=== PATIENT | female | born 1955 | race Caucasian/White ===

== ENCOUNTER → 2025-05-02 | Outpatient (CLI) | payer OTHER, SELFPAY ==
--- NOTE | 2025-05-02 | CYSPIN_PTH ---
PATIENT: DIGNA ACOSTA LOC: [facility] U#:[id number] AGE/SX: 69/F ROOM: RE05/02/[address]: Dr. Jesi Olvera MD : 1955 BED: DIS: 05/02/2025 SPEC #: [id number] RECD: 05/02/25 15:39 STATUS: JESSICA RETrey #: [id number] EUFEMIA: 05/02/25 00:[address]: Jesi Olvera DEPT: CYTOLOGY RECD BY: Charlie Vasquez ENTERED: 05/05/25 12:02 SP TYPE: CYSPIN FL OTHR DR: Dr. Nory Yarbrough MD Tissues: A - Urine Procedures: Pap Stain (control) Special Stain Group II Cytospin Fluid HEADER OPERATION: Not noted PRE-OP DIAGNOSIS: Gross hematuria TISSUE SUBMITTED: A- Urine for cytology - voided DIAGNOSIS CYTOLOGY A. Urine, voided (cytospin): - No malignant cells identified. CYTOLOGY STUDY Slides are reviewed. CYTOLOGY GROSS A. Received is 25 ml of gold-cloudy fluid labeled with the patient's name and and designated per the requisition as urine. Submitted for cytology preparation. Mr 05/05/2025 CPT: 69998
== END | disposition home or self-care (01) ==
LOC: LABSPEC 17:31
PROVIDERS: PCP General Practice; Visit Provider Urology
DX: R31.0 Gross hematuria (principal)
CPT/HCPCS: 88108; 88313

== ENCOUNTER → 2025-05-02 | Outpatient (CLI) | payer OTHER, SELFPAY ==
[2025-05-02 17:33] LABS: Cytology, Body Fluid / CSF SEE PATHOLOGY REPORT
[2025-05-02 18:04] LABS: Anion Gap 10 (5-15); BUN 18 mg/dL (4-19); BUN/Creat Ratio 19.2 RATIO (10-20); Calcium,Total 9.8 mg/dL (7.6-11.0); Carbon Dioxide 27.2 mmol/L (21.0-32.0); Chloride 104 mmol/L (98-108); Glucose 120 mg/dL (70-99); Potassium 4.1 mmol/L (3.3-5.1)
== END | disposition home or self-care (01) ==
PROVIDERS: PCP General Practice; Referring Provider Urology; Visit Provider Urology
DX: R31.0 Gross hematuria (principal)
CPT/HCPCS: 36415; 80048

== ENCOUNTER → 2025-05-26 | Outpatient (CLI) | payer MEDICARE, SELFPAY ==
--- NOTE | 2025-05-26 12:55 | CT_ITS ---
PROCEDURE: CT ABD/PELVIS W/WO CONTRAST 05/26/2025 REASON FOR EXAM: GROSS HEMATURIA TECHNIQUE: Procedure Code: [id number] Modality: CT Procedure: CT ABD/PELVIS W/WO CONTRAST Coronal and Sagittal reconstruction series were provided. CONTRAST: Isovue-300 VOLUME: 100 mL One or more dose reduction techniques were used (e.g., Automated exposure control, adjustment of the mA and/or kV according to patient size, use of iterative reconstruction technique. RADIATION DOSE SUMMARY: CTDlvol: 16.3 mGy DLP: 2821.00 mGycm COMPARISON: None FINDINGS: Lung bases: The lung bases are clear. Liver: Diffuse fatty infiltration. Gallbladder: The gallbladder is partially contracted. Spleen: Normal size. Pancreas: Normal size without evidence of mass surrounding inflammation or ductal dilation. Adrenals: Unremarkable Kidneys: There is evidence of a 4.9 cm by 5.8 cm by 5.5 cm heterogeneous mass arising from the upper midportion of the right kidney extending along its inferior aspect. There is evidence of thrombus within the right renal pelvis. There is thrombus within the right renal vein causing distention of the right renal vein with thrombus in the adjacent inferior vena cava. A neoplastic process with the tumor thrombosis should be ruled out. There is evidence of collateral circulation in the para renal space on the right side with increased markings in the surrounding posterior perirenal space. The left kidney is unremarkable. Bladder: Unremarkable Reproductive Organs: Normal uterine size and contour. Ovaries are unremarkable. Bowel: Colonic diverticulosis without diverticulitis. Appendix: The appendix is not identified. There is no inflammatory process identified in the right lower quadrant to suggest appendicitis. Lymph nodes: Unremarkable. Vasculature: Mild diffuse atherosclerotic calcifications are noted. Peritoneum / Retroperitoneum: No significant retroperitoneal lymphadenopathy is seen. Bones: Degenerative changes of the spine. CT/CT Abd/Pelvis W/WO Contrast IMPRESSION: Large heterogeneous enhancing mass in the right kidney as described with eviden ce of tumor thrombus within the right renal pelvis as well as the right renal vein and extension into the inferior vena cava. Col lateral circulation is seen in the right pararenal space as well as perinephric stranding. A neoplastic process with extension in to the venous structures should be ruled out. Reading Location: [place] [id number]
== END | disposition home or self-care (01) ==
PROVIDERS: PCP General Practice; Referring Provider Urology; Visit Provider Urology
DX: R31.0 Gross hematuria (principal)
CPT/HCPCS: 74178; Q9967